=== PATIENT | female | born 1985 | race Caucasian/White ===

== ENCOUNTER 2019-08-14 15:32 | Emergency (ER) | payer OTHER ==
[~2019-08-14] VITALS: Ht 157.5 cm; Wt 69.4 kg
[~2019-08-14 15:32] MED LIST: METROGEL-VAGINA70 GM VG; ZOFRAN ODT4 MG PO
[2019-08-14 16:30] VITALS: BP 125/70
== END 2019-08-14 16:31 | disposition home or self-care (01) ==
LOC: ER 15:32
DX: M25.531 Pain in right wrist (principal); F17.210 Nicotine dependence, cigarettes, uncomplicated; Z90.49 Acquired absence of other specified parts of digestive tract; Z91.048 Other nonmedicinal substance allergy status

== ENCOUNTER 2019-08-24 10:51 | Emergency (ER) | payer OTHER ==
[~2019-08-24] VITALS: Ht 157.5 cm; Wt 69.4 kg
[2019-08-24 11:00] VITALS: BP 123/62
== END 2019-08-24 11:45 | disposition home or self-care (01) ==
LOC: ER 10:51
DX: S63.501A Unspecified sprain of right wrist, initial encounter (principal); Z90.89 Acquired absence of other organs; Z02.79 Encounter for issue of other medical certificate; F17.210 Nicotine dependence, cigarettes, uncomplicated; X58.XXXA Exposure to other specified factors, initial encounter; Y93.89 Activity, other specified; Y92.89 Other specified places as the place of occurrence of the external cause; Y99.8 Other external cause status